=== PATIENT | male | born 1945 | race Caucasian/White ===

== ENCOUNTER 2021-02-06 05:40 | Day surgery (SDC) | payer BC, MEDICARE ==
[~2021-02-06] VITALS: Ht 170.2 cm; Wt 100.6 kg
[~2021-02-06 05:40] MED LIST: ASPIR-LOW81 MG PO; CEPHALEXIN500 M1 PO; FLOMAX0.4 MG PO; KEFLEX500 MG PO; LANTUS SOL100 UNIT/1 SUB-Q; LIPITOR20 MG PO; LISINOPRIL20 MG PO; METFORMIN HCL500 MG PO; NORCO 5-325 TA1 EACH PO; VITAMIN D1000 UNIT PO; ZOFRAN ODT4 MG PO
[2021-02-06] MEDS ORDERED: ALOGLIPTIN6.25 MG PO (06:03)
--- NOTE | 2021-02-06 07:51 | NUR ---
02/06/21 0751 Julia Adams 1200-PATIENT ARRIVED TO PACU ON 2L NC RR EVEN AWAKE DENIES PAIN OR NAUSEA. LAYING LEFT LATERAL ABDOMEN ROUND AND SOFT ENCOURAGED TO PASS GAS. PATIENT REPOSITIONED SELF TO BACK. IVF INFUSING.
--- NOTE | 2021-02-06 09:53 | OR ---
[facility] [address], [place] [address] Signed DATE OF OPERATION: 02/06/2021 SURGEON: Breanna Card MD PREOPERATIVE DIAGNOSES: 1. History of colon polyps and mid right colon cancer in 2007 at age 62. 2. Right colectomy in June 2008. 3. Unremarkable colonoscopy 2009 ([facility]). 4. Colonoscopy 2015, [facility] with tubular adenomatous polyps. 5. Minimal internal hemorrhoids. POSTOPERATIVE DIAGNOSES: 1. Minimal internal hemorrhoids. 2. Ileocolonic anastomosis (proximal transverse colon). PROCEDURE: Colonoscopy without biopsy. ESTIMATED BLOOD LOSS: None. INDICATIONS: Steffen is a 75-year-old gentleman, asked to see me for a followup colonoscopy. He had his initial screening colonoscopy at age 62 in 2007. He had adenomatous and hyperplastic polyps at that time. 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 He underwent right colectomy in June of 2008 with myself. He then moved back to [place]. In 2009, he had his colonoscopy which was unremarkable through the [facility] in [place]. He moved back to [place] and had a followup colonoscopy in 2015 with [facility] in [facility]. This revealed a small adenomatous polyp. He has no family history of colon cancer or polyps. He has no recent lower GI complaints. In the office, I gave him a pamphlet on colonoscopy and we had reviewed that together. He understands there is risk including, but not limited to gas bloating, crampy abdominal pain, bleeding, perforation requiring surgery, and missed diagnosis. He has done well with Versed and fentanyl in the past. He had expressed understanding and wished to proceed. PROCEDURE NOTE: Steffen was taken into our endoscopy suite and placed in the left lateral decubitus position. He was given 3 mg of Versed and 100 mcg of fentanyl to cover the case. A Electronically Signed By: BREANNA CARD MD 02/06/21 0953 PATIENT NAME: STEFFEN ROCHE OPERATIVE REPORT DATE OF : 47 REPORT #: [id number] PHYSICIAN: BREANNA CARD MD PCP: MAGDY BOLANOS MD REPORT IS CONFIDENTIAL AND NOT TO BE RELEASED WITHOUT AUTHORIZATION [facility] [address], [place] [address] Signed digital rectal exam was performed and this was unremarkable. The adult colonoscope was introduced and advanced quite readily up to his ileocolonic anastomosis in the proximal transverse colon. His prep was good. He had one area of liquid stool that contain seeds that I could not quite suction out completely. Otherwise, his prep was quite good. No evidence of any granulation tissue or recurrence at the anastomosis. The entire colon was unremarkable. There were no polyps or diverticula. The rectum was unremarkable. Upon retroflexion of scope, we could see small internal hemorrhoid columns. After this, the gas was suctioned out and colonoscope removed. Steffen tolerated procedure quite well. RECOMMENDATIONS: Steffen can follow up in 5 years for followup colonoscopy, so long health holds up. Breanna Card MD ALB/MODL /[id number] cc: Nura Resendiz [place], [place] Breanna Card MD Copies: NURA RESENDIZ ANDREW L MD ~ Electronically Signed By: BREANNA CARD MD 02/06/21 0953 PATIENT NAME: STEFFEN ROCHE OPERATIVE REPORT DATE OF : 47 REPORT #: [id number] PHYSICIAN: BREANNA CARD MD PCP: MAGDY BOLANOS MD REPORT IS CONFIDENTIAL AND NOT TO BE RELEASED WITHOUT AUTHORIZATION
--- NOTE | 2021-02-06 13:58 | NUR ---
PT ALERT, ORIENTED AND SUPPORTED BY HIS WAYLON. PT HAS HAD SCOPES PREVIOUS-ALL QUESTIONS ASKED ANSWERED. GAVE DANYEL, MEDICAL CLERKBEBO BOWEN IN TO TAKE PT TO SCOPE RM. WILL FOLLOW NEEDED
== END 2021-02-06 08:20 | disposition home or self-care (01) ==
LOC: DS 05:40 → OPS 05:40 → DS 06:45 → OPS 08:20 → DS 03-04 09:00
PROVIDERS: ATTEND Colon & Rectal Surgery
PROC: 0DJD8ZZ Inspection of Lower Intestinal Tract, Via Natural or Artificial Opening Endoscopic (ICD-10-PCS; principal; 2021-02-06 06:45)
DX: Z09 Encounter for follow-up examination after completed treatment for conditions other than malignant neoplasm (principal); K64.0 First degree hemorrhoids; E66.9 Obesity, unspecified; I10 Essential (primary) hypertension; E78.00 Pure hypercholesterolemia, unspecified; G47.30 Sleep apnea, unspecified; E11.319 Type 2 diabetes mellitus with unspecified diabetic retinopathy without macular edema; Z86.010 Personal history of colon polyps; Z85.038 Personal history of other malignant neoplasm of large intestine; Z90.49 Acquired absence of other specified parts of digestive tract; Z98.0 Intestinal bypass and anastomosis status; Z79.4 Long term (current) use of insulin; Z79.82 Long term (current) use of aspirin; Z88.0 Allergy status to penicillin; Z88.1 Allergy status to other antibiotic agents; Z88.5 Allergy status to narcotic agent; Z68.34 Body mass index [BMI] 34.0-34.9, adult; Z87.891 Personal history of nicotine dependence
CPT/HCPCS: 99153; G0500; J2250; J7121